=== PATIENT | female | born 1930 | race Caucasian/White ===

== ENCOUNTER 2016-09-12 05:13 | Inpatient (IN) | payer OTHER ==
[~2016-09-12] VITALS: Ht 160 cm; Wt 73.2 kg
[~2016-09-12 05:13] MED LIST: ASPIR 8181 M1 PO; ASPIR-LOW81 MG PO; ASPIRIN81 M1 PO; BENICAR HCT1 TABLE1 PO; BENICAR40 MG PO; CELECOXIB200 MG PO; CO Q-10100 MG PO; COQ-10100 MG PO; CORTEF10 MG PO; CORTEF5 M1 PO; COUMADIN5 MG PO; CRESTOR10 MG PO; CYCLOBENZAPRINE10 MG PO; HYDROCODON-ACE1 EAC7 PO; IRON325 MG PO; METFORMIN HCL500 MG PO; NEURONTIN100 MG PO; NEXIUM20 MG PO; NEXIUM40 MG PO; NORVASC2.5 MG PO; OMEGA 3 1,0001 EACH; OMEGA 3-6-9 11200 MG PO; OMEGA 3-6-9 CO1 EACH PO; OMEGA-31000 M1 PO; PRAVACHOL20 MG PO; PRAVASTATIN SOD20 MG PO; TYLENOL REGULA325 MG PO; VITAMIN B-1250 MC3; VITAMIN B-12500 MC2 PO; VITAMIN B122500 MCG PO; VITAMIN D31000 UNIT PO; VITAMIN D35000 UNIT PO; VITAMIN D400 INTUNI; VITAMIN D5000 UNIT PO; Vitamin B12 PO; [UNRECOGNIZED DRUG - CODE] PO
[2016-09-12 06:42] VITALS: BP 143/67
[2016-09-12 15:59] VITALS: BP 115/59
[2016-09-12 20:07] VITALS: BP 132/62
[2016-09-13 00:12] VITALS: BP 115/59
[2016-09-13 08:08] VITALS: BP 120/73
[2016-09-13 15:20] VITALS: BP 136/67
[2016-09-14 00:11] VITALS: BP 139/67
[2016-09-14 08:42] VITALS: BP 110/60
[2016-09-14] MEDS ORDERED: HYDROCODON-ACE1 EAC7 PO (12:10)
== END 2016-09-14 16:58 | disposition home health service (06) | DRG 516 ==
LOC: SDC 05:13 → 2SOUTH 09:50 → 3EAST 09:50 → SDC 15:48 → 3EAST 09-14 16:58
PROC: 0QN00ZZ Release Lumbar Vertebra, Open Approach (ICD-10-PCS; principal; 2016-09-12)
DX: M48.06 Spinal stenosis, lumbar region (principal); M47.12 Other spondylosis with myelopathy, cervical region; M54.16 Radiculopathy, lumbar region; M48.02 Spinal stenosis, cervical region; M13.0 Polyarthritis, unspecified; M25.519 Pain in unspecified shoulder; E78.5 Hyperlipidemia, unspecified
CPT/HCPCS: 72020; 76000; J0330; J0690; J1100; J2250; J2405; J2710; J3010; J3480